=== PATIENT | male | born 1955 | race Caucasian/White ===

== ENCOUNTER 2018-03-13 20:01 | Emergency (ER) | payer OTHER ==
[2018-03-13] MEDS: HYDROCODONE/APAP (5/325) TAB PO (20:49)
[2018-03-13] MEDS: DIPHTH/TET/ACEL PERTUSS (ADULT) 0.5 ML VIAL IM* (20:55)
== END 2018-03-13 22:21 | disposition home or self-care (01) ==
LOC: FTE 20:01
DX: S50.312A Abrasion of left elbow, initial encounter (principal); M62.838 Other muscle spasm; R07.9 Chest pain, unspecified; V49.40XA Driver injured in collision with unspecified motor vehicles in traffic accident, initial encounter
CPT/HCPCS: 71046; 72040; 73590; 90471; 90715; 99283-25